=== PATIENT | female | born 1945 | race Two or more races ===

== ENCOUNTER 2018-07-06 17:29 | Emergency (ER) | payer MEDICARE ==
[~2018-07-06] VITALS: Ht 129.5 cm; Wt 57.3 kg
[~2018-07-06 17:29] MED LIST: OMEPRAZOLE20 M1 PO
[2018-07-06 17:42] VITALS: Ht 129.5 cm; Wt 57.3 kg
[2018-07-06 18:12] LABS: BASOPHILS 0.4 % (0-2); EOSINOPHILS 0.8 % (0-7); HEMATOCRIT 37.9 % (36.0-48.0); HEMOGLOBIN 12.7 g/dL (12-16); IMMATURE GRANULOCYTES 0.1 % (0-5); LYMPHOCYTES 40.9 % (15-50); MCH 30.4 pg (26.0-34.0); MCHC 33.5 g/dL (31.0-37.0); MCV 90.7 fL (80.0-100.0); MEAN PLATELET VOLUME 9.8 fL (7.4-10.4); NEUTROPHILS 50.8 % (40-80); PLATELET COUNT 238 10x3/uL (130-400); RBC 4.18 10x6/uL (4.00-5.40); RDW 13.3 % (11.5-14.5); WBC 7.5 10x3/uL (4.8-10.8)
[2018-07-06 18:44] LABS: ALBUMIN 3.5 g/dL (3.4-5.0); ALKALINE PHOSPHATASE 62 U/L (46-116); ALT (SGPT) 20 U/L (10-68); CALC OSMOLALITY 276 mosm/kg (275-300); CARBON DIOXIDE 26.3 mmol/L (21.0-32.0); CHLORIDE - SERUM 103 mmol/L (98-107); CREATININE - SERUM 0.7 mg/dL (0.6-1.3); GLUCOSE 97 mg/dL (74-106); POTASSIUM - SERUM 3.6 mmol/L (3.5-5.1); PROTEIN - SERUM 7.9 g/dL (6.4-8.2); SODIUM 139 mmol/L (136-145); UREA NITROGEN 9 mg/dL (7-18); eGFR NON AFRICAN AMERICAN 87 mL/min (90-120)
[2018-07-06] MEDS ORDERED: PROTONIX40 MG PO (21:18)
[2018-07-06 21:39] VITALS: BP 156/79
== END 2018-07-06 21:40 | disposition home or self-care (01) ==
LOC: D.ER 17:29
PROVIDERS: Emergency Medicine
DX: K21.9 Gastro-esophageal reflux disease without esophagitis (principal); R42 Dizziness and giddiness; R07.9 Chest pain, unspecified; R11.2 Nausea with vomiting, unspecified

== ENCOUNTER 2019-02-15 07:21 | Observation (INO) | payer MEDICARE ==
[~2019-02-15] VITALS: Ht 129.5 cm; Wt 58.2 kg
--- NOTE | ~2019-02-15 | EC ---
PATIENT:FREDRICK BRAXTON DATE OF SERVICE: 02/15/19 SEX: F MEDICAL RECORD: [id number] DATE OF : 43 LOCATION:D.M2 D.211 AGE OF PATIENT: 73 ADMISSION DATE: 02/15/19 REFERRING PHYSICIAN: INTERPRETING PHYSICIAN: SABIHA DEVINE MD ECHOCARDIOGRAM REPORT ECHO CHARGES 4 ECHO COMPLETE Date: 02/15/19 CLINICAL DIAGNOSIS: RAMOS ECHOCARDIOGRAPHIC MEASUREMENTS (adult normal given) AC root (d.<3.7cm) 2.7 cm LV Septum d (<1.2 cm> 1.4 cm Valve Excursion 1.7 cm LV Septum (systole) 2.1 cm Left Atria (s.<4.0cm> 2.8 cm LVPW d(<1.2cm) 1.4 cm RV (d.<2.3cm) 2.2 cm LVPW (sytole) 1.9 cm LV diastole(<5.6CM) 4.7 cm MV E-F(>70mm/sec) cm LV systole 2.8 cm LVOT Diameter 1.8 cm MV exc.(>10mm) cm Est.ejection fraction (50-75%) % DOPPLER: LVIT cm/sec A 91.0 cm/sec E 49.0 cm/sec LA cm/sec RVSP 24.1 mmHg LVOT 92.0 cm/sec AOP1/2T m/s Asc. Ao 151 cm/sec RVOT 54.0 cm/sec RA cm/sec PA 92.0 cm/sec AV Gradient Peak 9.1 mmHg AV Mean 43 mmHg AV Area 1.4 cm MV Gradient Peak 4.2 mmHg MV Mean 1.1 mmHg MV Area cm COMMENTS: Reference Librarian: Rosa MANZANOOE Measurement Psychologist: 1 Dr. Devine TAPE# PACS Pericardial Effusion N DATE OF SERVICE: 02/15/2019 ECHOCARDIOGRAM DATE OF SERVICE: 02/15/2019 FINDINGS: 1. Left ventricular chamber size is within normal limits. Left ventricular systolic function is normal. Overall ejection fraction estimated at 50%. 2. Left atrium, right atrium, and right ventricle chamber sizes are within ECHOCARDIOGRAM REPORT [id number] FREDRICK BRAXTON normal limits. 3. Valvular structures have normal structure and motion. 4. Doppler interrogation reveals trace mitral regurgitation, no other valvular insufficiency or stenosis. Pulmonary systolic pressure is estimated at 24 mmHg. 5. No evidence of pericardial effusion or left ventricular thrombus. TRANSINT:[id number] Voice Confirmation ID: [id number] DOCUMENT ID: [id number] SABIHA DEVINE MD CC: SABIHA KEATING MD [id number] DICTATION DATE: 02/15/19 1600 SENIOR PRINCIPAL PROCESS ENGINEER: 02/15/192319 DIS IN 02/15/[address] [facility] [address] [place] [id number]
--- NOTE | ~2019-02-15 | CN ---
PATIENT NAME:FREDRICK BERMEO MEDICAL RECORD: [id number] : 43 LOCATION:D. D.2116 ADMIT DATE: 02/15/19 ACCOUNT: [id number] CONSULTING PHYSICIAN: SABIHA BOLES MD REFERRING PHYSICIAN: SABIHA KEATING MD DATE OF CONSULTATION: 02/15/2019 CARDIOLOGY CONSULTATION DIAGNOSES: 1. Chest pain. 2. Shortness of breath, dyspnea on exertion. 3. GERD. HISTORY OF PRESENT ILLNESS: Mrs. Bermeo presents initially with what she thought was an exacerbation of her GERD; however, it was not epigastric, it was more in the center of her chest. She has not had this before. It was associated with diaphoresis. She has been more short of breath over the past few days with chest discomfort today that was quite severe. She was as well quite short of breath. Her EKG is with no abnormalities. She has no history of ischemic heart disease. PHYSICAL EXAMINATION: GENERAL APPEARANCE: Well-nourished, well-developed, appears stated age. Level of distress, comfortable. PSYCHIATRIC: Mental status, alert, normal affect. Orientation, oriented to time, place and person. EYES: Lids and conjunctiva, noninjected. No discharge, no pallor. ENT: Lips, teeth, gums, normal dentition. Oropharynx, no cyanosis, no pallor. NECK: Carotid arteries, bilateral normal upstroke, no bruits, no thrills. JUGULAR VEINS: No jugular venous pressure or distention. CERVICAL LYMPH NODES: Nontender, nonenlarged. THYROID: Not enlarged. Nontender. No nodules. LUNGS: Respiratory effort, unlabored. CHEST: Normal curvature. No thoracic deformity. No chest wall tenderness. Percussion, resonant. Auscultation, clear. No wheezes, no rales, no rhonchi. CARDIOVASCULAR: Precordial exam, nondisplaced. No heaves or pericardial thrills. Rate and rhythm, regular. Heart sounds, normal S1, normal S2. No S3, no gallop, no rub. Systolic murmur, not heard. Diastolic murmur, not heard. EXTREMITIES: No cyanosis, no edema. Peripheral pulses, full and equal in all extremities, except as noted. No bruits appreciated. ABDOMEN: Soft, nondistended. Normal aorta. No bruit. Nontender. No masses. Liver, nontender, no hepatomegaly. Spleen, nontender, no splenomegaly. MUSCULOSKELETAL: No joint tenderness. No joint swelling. No erythema. NEUROLOGICAL: Normal gait, normal strength, normal tone. SKIN: Warm and dry. OVERALL IMPRESSION: Chest pain, most likely GERD at this time, with a normal EKG. We will risk stratify with stress testing, Cardiolite imaging. Further care depends upon findings of stress test. TRANSINT:[id number] Voice Confirmation ID: [id number] DOCUMENT ID: [id number] CONSULT REPORT [id number] FREDRICK BERMEO JEFFREY MD CC: [id number] DICTATION DATE: 02/15/19 1222 FORKLIFT SUPERVISOR: 02/15/19 1240 ADM IN [place] [id number] [place] [id number]
--- NOTE | ~2019-02-15 | ST ---
PATIENT:FREDRICK BRAXTON MEDICAL RECORD: [id number] SEX: F LOCATION:[facility] D211 ORDER #: ADMISSION DATE: 02/15/19 AGE OF PATIENT: 73 REFERRING PHYSICIAN: INTERPRETING PHYSICIAN: SABIHA BOLES MD DATE OF SERVICE: 02/15/2019 INDICATION: Chest pain. She was exercised on standard Lexiscan protocol with 29 mCi of sestamibi injected at peak stress for stress only images. FINDINGS: Gated SPECT reveals preserved ejection fraction of greater than 50% with good wall motioning and thickening and brightening throughout all segments. SPECT imaging: Cardiolite was used as myocardial perfusion agent. There is homogeneous uptake throughout all segments with stress only images. OVERALL IMPRESSION: This is a normal nuclear stress test. No evidence of inducible ischemia or previous infarction. Gated SPECT reveals a preserved ejection fraction greater than 50%. This yields a low likelihood of hemodynamically significant coronary artery disease. Chest pain is noncardiac in etiology. TRANSINT:[id number] Voice Confirmation ID: [id number] DOCUMENT ID: [id number] SABIHA BOLES MD CC: SABIHA KEATING MD [id number] DICTATION DATE: 02/15/19 1548 HOME THEATRE TECHNICIAN: 02/16/19 0936 DIS IN 02/15/19 [facility] [address] [place] [address]
[~2019-02-15 07:21] MED LIST changes: +PROTONIX40 MG PO
[2019-02-15 08:09] LABS: BASOPHILS 1.1 % (0-2); EOSINOPHILS 1.5 % (0-7); HEMOGLOBIN 12.8 g/dL (12-16); IMMATURE GRANULOCYTES 0.2 % (0-5); LYMPHOCYTES 32.3 % (15-50); MCH 30.1 pg (26.0-34.0); MCHC 33.7 g/dL (31.0-37.0); MCV 89.4 fL (80.0-100.0); MEAN PLATELET VOLUME 10.2 fL (7.4-10.4); MONOCYTES 6.9 % (2-11); PLATELET COUNT 244 10x3/uL (130-400); RBC 4.25 10x6/uL (4.00-5.40); RDW 13.3 % (11.5-14.5); WBC 5.4 10x3/uL (4.8-10.8)
[2019-02-15 08:14] LABS: ALBUMIN 3.4 g/dL (3.4-5.0); ALKALINE PHOSPHATASE 66 U/L (46-116); ALT (SGPT) 21 U/L (10-68); BILIRUBIN - TOTAL 0.41 mg/dL (0.2-1.3); CALC OSMOLALITY 276 mosm/kg (275-300); CARBON DIOXIDE 28.8 mmol/L (21.0-32.0); CHLORIDE - SERUM 103 mmol/L (98-107); CREATININE - SERUM 0.6 mg/dL (0.6-1.3); GLUCOSE 99 mg/dL (74-106); POTASSIUM - SERUM 3.7 mmol/L (3.5-5.1); PROTEIN - SERUM 7.6 g/dL (6.4-8.2); SODIUM 138 mmol/L (136-145); UREA NITROGEN 14 mg/dL (7-18); eGFR NON AFRICAN AMERICAN > 90 mL/min (90-120)
[2019-02-15 08:22] LABS: LIPASE 114 U/L (73-393); PRO BNP 56 pg/mL (0-125)
[2019-02-15 08:23] LABS: TROPONIN-I < 0.017 ng/mL (0.000-0.060)
--- NOTE | 2019-02-15 09:50 | NUR ---
TRANSFER FROM ER BY W/C. GALDINOINTED TO ROOM. CALL LIGHT IN REACH. WILL CONT. PLAN OF CARE.
[2019-02-15 09:58] VITALS: BP 160/61; BMI 34.6
--- NOTE | 2019-02-15 11:07 | NUR ---
NM TECH AT BS ON INTERPRETATION PHONE GETTINGS CONSENTS FOR STRESS TEST. WILL CONT. PLAN OF CARE.
--- NOTE | 2019-02-15 11:30 | NUR ---
LEAVING FOR STRESS TEST BY W/C. WILL MONITOR.
[2019-02-15 13:31] VITALS: Ht 129.5 cm; Wt 58.2 kg
--- NOTE | 2019-02-15 14:17 | NUR ---
ECHO COMPLETED AT BS.
--- NOTE | 2019-02-15 14:50 | NUR ---
TRANSFER FROM ER BY STRETCHER. OREINTED TO ROOM. CALL LIGHT IN REACH. WILL CONT. PLAN OF CARE.
[2019-02-15 16:17] VITALS: BP 129/59
--- NOTE | 2019-02-15 17:07 | NUR ---
IV AND TELEMETRY DCD. DC PLANS GIVEN TO PT AND FAMILY. UNDERSTANDING VOICED. ESCORTED TO CAR BY W/C.
--- NOTE | 2019-02-16 07:53 | MORECARE ---
CASE MANAGEMENT DISCHARGE SUMMARY PATIENT: FREDRICK BRAXTON UNIT: [id number] ADM DATE: 02/15/19 AGE: 73 : [birth year] SEX: F ROOM/BED: D.4276 AUTHOR: ISSA KEY PHYSICIAN: REFERRING PHYSICIAN: SABIHA KEATING MD DATE OF SERVICE: 02/16/19 Discharge Plan Patient Name: FREDRICK BRAXTON Facility: [facility]:[place] : 1945 Planned Disposition: Home Anticipated Discharge Date: 02/15/19 Discharge Date: 02/15/2019 Expected LOS: 1 Initial Reviewer: [email or web address] Initial Review Date: 02/16/2019 Generated: 02/16/19 8:52 am Patient Name: FREDRICK BRAXTON Page [id number] at 0753 All edits/amendments must be made on the electronic document DICTATION DATE: 02/16/19 075 MANAGER DATABASE ADMINISTRATION: GREER 02/16/19 0752 RPT#: [id number] DC DATE:02/15/19 STATUS: DIS IN [facility] [address] [place] [address] END OF REPORT
== END 2019-02-15 17:08 | disposition home or self-care (01) ==
LOC: D.ER 07:21 → D.M2 09:01 → OBSVTIME 09:01 → D.M2 17:08
PROVIDERS: Family Medicine; ADMIT Family Medicine; ATTEND Family Medicine
DX: R07.89 Other chest pain (principal); K21.9 Gastro-esophageal reflux disease without esophagitis; E73.9 Lactose intolerance, unspecified

== ENCOUNTER → 2019-03-08 07:22 | Outpatient (CLI) | payer MEDICARE ==
[2019-02-15 13:31] VITALS: BMI 34.6
== END | disposition home or self-care (01) ==
LOC: D.NM 07:22
PROVIDERS: ATTEND Family Medicine
DX: R10.10 Upper abdominal pain, unspecified (principal); R11.2 Nausea with vomiting, unspecified